=== PATIENT | female | born 1970 | race Caucasian/White ===

== ENCOUNTER 2018-11-03 09:21 | Emergency (ER) | payer BC ==
[~2018-11-03] VITALS: Ht 167.6 cm; Wt 113.4 kg
[2018-11-03] MEDS ORDERED: ICLUSIG PO (09:44)
[2018-11-03] MEDS ORDERED: PRAVACHOL40 MG PO ×2 (09:45→12:12)
[2018-11-03] MEDS ORDERED: ASPIRIN EC325 M1 PO (09:46)
[2018-11-03] MEDS ORDERED: BENADRYL25 MG PO (09:46)
[2018-11-03 10:39] LABS: URINE BILIRUBIN NEGATIVE (Negative); URINE BLOOD TRACE (Negative); URINE CLARITY CLEAR; URINE COLOR YELLOW; URINE GLUCOSE-RANDOM* NEGATIVE (Negative); URINE KETONES NEGATIVE (Negative); URINE LEUKOCYTES-REFLEX NEGATIVE (Negative); URINE NITRITE-REFLEX NEGATIVE (Negative); URINE PROTEIN (DIPSTICK) NEGATIVE (Negative); URINE UROBILINOGEN 0.2 E.U./dl (0.2-1.0)
[2018-11-03 10:58] LABS: ABSOLUTE NEUTROPHILS 6.9 thou/uL (1.4-8.2); BASOPHILS 0.7 % (0.0-2.0); EOSINOPHILS 1.7 % (0.0-3.0); HEMATOCRIT 47.9 % (37.0-47.0); HEMOGLOBIN 16.8 gm/dL (12.0-15.0); MCV 91.4 fL (80.0-100.0); MONOCYTES 9.1 % (1.0-8.0); PLATELET COUNT 338 thou/uL (150-400); POLYS 66.5 % (36.0-66.0); RBC 5.24 mil/uL (4.20-5.00); RDW 13.3 % (10.5-14.5); WBC 10.4 thou/uL (4.0-11.0)
[2018-11-03 11:06] LABS: ANION GAP 10 mmol/L (7-16); BUN 8 mg/dL (7-18); CALCIUM 8.8 mg/dL (8.5-10.1); CHLORIDE 106 mmol/L (98-107); CO2 26 mmol/L (21-32); CREATININE 0.7 mg/dL (0.6-1.0); GLUCOSE 115 mg/dL (74-106); POTASSIUM 4.3 mmol/L (3.5-5.1); SODIUM 142 mmol/L (136-145)
[2018-11-03 11:13] LABS: ALBUMIN 3.7 g/dL (3.4-5.0); DIRECT BILIRUBIN < 0.1 mg/dL (<0.1-0.3); MAGNESIUM 2.1 mg/dL (1.8-2.4); SGOT 22 U/L (15-37); SGPT 28 U/L (30-65); TOTAL BILIRUBIN 0.5 mg/dL (<0.1-1.0); TOTAL PROTEIN 7.6 g/dL (6.4-8.2)
[2018-11-03 12:21] VITALS: BP 116/71
== END 2018-11-03 12:22 | disposition home or self-care (01) ==
LOC: ER 09:21
PROVIDERS: Emergency Medicine
DX: R35.1 Nocturia (principal); R61 Generalized hyperhidrosis; R06.02 Shortness of breath; R51 Headache; R42 Dizziness and giddiness; C95.90 Leukemia, unspecified not having achieved remission; Z88.6 Allergy status to analgesic agent